=== PATIENT | male | born 1975 | race American Indian/Alaskan Native ===

== ENCOUNTER 2021-11-21 07:58 | Day surgery (SDC) | payer BC ==
[2021-11-19 17:18] VITALS: BMI 27.1
[2021-11-21 09:51] VITALS: TEMP 97.8
[2021-11-21 10:08] VITALS: BP 112/67; PULSE 68
== END 2021-11-21 10:05 | disposition home or self-care (01) ==
LOC: FASU-ENDO 07:58
PROVIDERS: ATTEND Internal Medicine Gastroenterology
PROC: 0DJD8ZZ Inspection of Lower Intestinal Tract, Via Natural or Artificial Opening Endoscopic (ICD-10-PCS; principal; 2021-11-21 09:16)
DX: Z12.11 Encounter for screening for malignant neoplasm of colon (principal)